=== PATIENT | female | born 1980 | race Caucasian/White ===

== ENCOUNTER 2016-10-04 07:28 | Emergency (ER) | payer MEDICAID ==
[2016-10-04 07:30] VITALS: BP 162/78
--- NOTE | 2016-10-04 08:03 | PHYS DOC ---
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 Pt states she's had intermittent LUQ abdominal cramping starting 0400 today. States she went to bed feeling well, today mildly achy and one loose stool prior to arrival. No n/v as yet, has been around children with gastroenteritis this past week. Appetite preserved, no prearrival tx. Abdominal discomfort described as spasm, moderate-severe no known exacerbating/relieving factors. Supposed to work today, states she has called her employer notifying them she will not be in today. Requests work note. No fever/chills/myalgias no other c/ o. Timing/Duration: 4-6 hours Severity: moderate Modifying Factors: improves with other Associated Symptoms: other Allergies: Coded Allergies: naproxen (Verified Allergy, Unknown, 10/04/16) Past Medical History Medical History: asthma Surgical History: noncontributory Social History Smoker: non-smoker Alcohol: none Drugs: none Review of Systems Constitutional: see HPI Respiratory: denies cough, denies shortness of breath Cardiovascular: denies chest pain, denies palpitations Gastrointestinal: see HPI Genitourinary: denies dysuria, denies frequency, denies hematuria Musculoskeletal: denies back pain, denies joint swelling, denies neck pain Psychiatric/Neurological: denies headache, denies numbness, denies paresthesia Physical Exam General Appearance: no apparent distress, obese Ear, Nose, Throat: hearing grossly normal, normal ENT inspection Neck: non-tender, supple Respiratory: normal breath sounds, no respiratory distress Cardiovascular: normal peripheral pulses, regular rate, rhythm Gastrointestinal: normal bowel sounds, soft (ND, no focal TTP, obese no mass) Rectal: deferred Back: no CVA tenderness, no vertebral tenderness Extremities: non-tender, normal inspection Neurologic/Psychiatric: inspector assembly II-XII nml as tested, no motor/sensory deficits, alert, normal mood/affect, oriented x 3 Skin: normal color, warm/dry Orders, Labs, Meds Pt did develop the discomfort as we were finishing up evaluation, I palpated gas bubbles at the site. Given pt malaise, recent exposure, loose stool, symptoms, and other boyd essentially normal exam it appears pt developing viral GE. Will treat as such, pt to return prn. She expressed agreement/ understanding with treatment plan. Departure Time of Disposition: 07:58 Disposition: 01 HOME, SELF-CARE Diagnosis: Abdominal discomfort NOS Condition: GOOD Patient Instructions: Abdominal Pain Additional Instructions: As discussed, it appears you may be developing gastroenteritis. Off work today/tomorrow. Clear liquids today, advance to bland diet tomorrow. Aggressive hydration with gatorade, water. OTC gas remedy (simethicone, etc) as needed. Rx: dicyclomine, zofran odt, norco 5mg #10 Follow up with your doctor in 3-5 days if not better. Return to ED with new or changing symptoms. MARK GARCIA DO Oct 04, 2016 08:03
[2016-10-04] MEDS ORDERED: ONDANSETRON ODT 4 MG TAB.RAPDIS PO ONE (08:15)
[2016-10-04] MEDS ORDERED: DICYCLOMINE HCL 20 MG TABLET PO ONE (08:15)
[2016-10-04] MEDS ORDERED: HYDROCODONE/APAP 5/325MG TABLET. PO ONE (08:15)
== END 2016-10-04 08:10 | disposition home or self-care (01) ==
LOC: ER 07:28
DX: R10.32 Left lower quadrant pain (principal); J45.909 Unspecified asthma, uncomplicated; Z88.6 Allergy status to analgesic agent
CPT/HCPCS: 99284; Q0162

== ENCOUNTER → 2017-04-16 | Outpatient (CLI) | payer BC, MEDICAID ==
--- NOTE | 2017-04-16 09:06 | RAD ---
Indication: Asthma. Time of exam 0750 hours. No prior studies are available for comparison. The heart appears mildly enlarged. The lungs are clear. The pulmonary vascularity is normal. No infiltrate is detected. No effusion or pneumothorax is seen. Mild right convexity scoliotic curvature is noted. Impression: No acute cardiopulmonary process is detected.
== END | disposition home or self-care (01) ==
LOC: DXRADRC 08:53
PROVIDERS: ATTEND Physician Assistant Medical
DX: J45.909 Unspecified asthma, uncomplicated (principal); I51.7 Cardiomegaly; M41.84 Other forms of scoliosis, thoracic region
CPT/HCPCS: 71020

== ENCOUNTER 2021-03-01 20:49 | Emergency (ER) | payer SELFPAY ==
[~2021-03-01] VITALS: Ht 157.5 cm; Wt 101.4 kg
--- NOTE | 2021-03-01 22:05 | PHYS DOC ---
Past History Past Medical History: Asthma Past Surgical History: Tubal ligation Alcohol Use: None Drug Use: None Adult General Chief Complaint Chief Complaint: NAUSEA/VOMITING/DIARRHEA HPI HPI Patient is a 40-year-old female who presents with a chief complaint of 1 day of heartburn, nausea, vomiting, and diarrhea. Denies any recent traumas, known ill contacts, fevers, actual chest pain, shortness of breath, dyspnea on exertion, orthopnea, PND or edema. States she is otherwise healthy outside of asthma. Patient states she does not think it is an asthma exacerbation and has not been wheezing or needed her medications. Review of Systems Review of Systems Review of systems otherwise unremarkable except noted in HPI Allergies Allergies Allergies Coded Allergies Type Severity Reaction Last Updated Verified naproxen Allergy Unknown 10/04/16 Yes Physical Exam Physical Exam Constitutional: Well developed, well nourished, no acute distress, non-toxic appearance. [] HENT: Normocephalic, atraumatic, Eyes: conjunctiva normal, no discharge. [] Neck: Normal range of motion, no tenderness, supple, no stridor. [] Cardiovascular:Heart rate regular rhythm, no murmur [] Lungs & Thorax: Bilateral breath sounds clear to auscultation [] Abdomen: soft, no tenderness, no masses, no pulsatile masses. [] Skin: Warm, dry, no erythema, no rash. [] Back: No tenderness, no CVA tenderness. [] Extremities: No tenderness, no cyanosis, no clubbing, ROM intact, no edema. [] Neurologic: Alert and oriented X 3, no focal deficits noted. [] Psychologic: Affect normal, judgement normal, mood normal. [] Current Patient Data Vital Signs Vital Signs Date Time Temp Pulse Resp B/P (MAP) Pulse Ox O2 Delivery O2 Flow Rate FiO2 03/01/21 21:56 98.5 70 18 148/80 (102) 99 Room Air EKG EKG [] Radiology/Procedures Radiology/Procedures [] Heart Score C/O Chest Pain: No Risk Factors: Risk Factors: DM, Current or recent (<one month) smoker, HTN, HLP, family history of CAD, obesity. Risk Scores: Risk Factors: DM, Current or recent (<one month) smoker, HTN, HLP, family history of CAD, obesity. Course & Med Decision Making Course & Med Decision Making Patient is a 40-year-old female who presents with a day of heartburn, nausea, vomiting, diarrhea Vital signs not concerning. Physical exam noted above. EKG noted above and normal. Troponin normal. Given GI cocktail and Zofran. Chest x-ray not concerning. On reassessment patient stated she was feeling much better and think the GI cocktail the trick. States symptoms have resolved. States she was supposed to be taking omeprazole but has been taking it regularly and did not change her diet yet. Discussed the need to follow-up with her primary care physician and set up an outpatient EGD. Advised on symptom management at home with diet and medications. Gave return precautions to the ED. Patient grateful, verbalized understanding and agreed with plan of discharge. [] Dragon Disclaimer Dragon Disclaimer This electronic medical record was generated, in whole or in part, using a voice recognition dictation system. Departure Departure: Impression: Primary Impression: Heartburn Additional Impression: Nausea Disposition: HOME / SELF CARE / HOMELESS Condition: GOOD Referrals: MED PORTILLO (PCP) Patient Instructions: Diet for Gastroesophageal Reflux Disease, Adult, Gastroesophageal Reflux Disease, Adult Additional Instructions: Thank you for coming into the emergency department tonight and allowing us to take care of you. Please read the attached information carefully to go back over things we discussed. Please adjust your diet accordingly as we discussed. Please use your omeprazole, and Tums as we discussed. Please call your primary care physician on Wednesday to set up a follow-up and discuss the outpatient scope of your esophagus and abdomen. Please come back to the ED with new or concerning symptoms as discussed. Problem Qualifiers MARYSE LAM MD Mar 01, 2021 22:05
[2021-03-01] MEDS ORDERED: ONDANSETRON ODT 4 MG TAB.RAPDIS PO ONE (22:15)
[2021-03-01] MEDS ORDERED: LIDO:MAALOX 1:1 20 ML SINGLE DOSE. PO ONE (22:15)
--- NOTE | 2021-03-01 22:52 | RAD ---
Study: XR CHEST 1V Indication: Chest pain. Comparison: 04/16/2017 Findings: Unremarkable/unchanged cardiomediastinal silhouette and paulina. Possible faint atelectasis the left maria ines g base. No confluent infiltrate, pleural effusion or pneumothorax. Grossly intact osseous structures. Impression: No acute radiographic abnormality of the chest. Electronically signed by: AUGUSTA DEMPSEY MD (03/01/2021 10:49 PM) [facility]
[2021-03-01] MEDS ORDERED: ONDANSETRON 4MG ODT 4TABLET STARTPACK. PO ONE (23:15)
[2021-03-01 23:20] VITALS: BP 114/65
--- NOTE | 2021-03-02 06:37 | EKG ---
[address] [address] Test Date: 2021-03-01 Test Time: 22:25:21 Pat Name: TERA MCADAMS Department: Room: Gender: F Terrazzo Roller: : 1980 Requested By: MARYSE LAM Order Number: [id number] Reading MD: Measurements Intervals [place] Rate: 70 P: 49 SC: 176 QRS: 21 QRSD: 90 T: -4 QT: 468 QTc: 509 Interpretive Statements SINUS RHYTHM PROLONGED QT NO SPECIFIC ECG ABNORMALITIES RI6.02 No previous ECG available for comparison
--- NOTE | 2021-03-03 08:39 | NUR ---
IP: Informed pt of negative covid test. Pt verbalized understanding.
== END 2021-03-01 23:23 | disposition home or self-care (01) ==
LOC: ER 20:49
DX: R12 Heartburn (principal); R11.2 Nausea with vomiting, unspecified; J45.909 Unspecified asthma, uncomplicated; Z98.51 Tubal ligation status; Z88.6 Allergy status to analgesic agent; Z20.822 Contact with and (suspected) exposure to COVID-19
CPT/HCPCS: 71045; 84484; 93005; 99285; C9803; Q0162; U0003

== ENCOUNTER → 2021-05-20 | Outpatient (CLI) | payer MEDICAID ==
--- NOTE | 2021-05-20 10:45 | RAD ---
BILATERAL DIGITAL SCREENING 2-D MAMMOGRAM INDICATION: Routine screening. COMPARISON: None. This is a baseline exam. Interpretation was made using CAD. FINDINGS: Breast Density: There are scattered areas of fibroglandular density. RIGHT BREAST: No suspicious masses, calcifications or areas of architectural distortion are seen. LEFT BREAST: No suspicious masses, calcifications or areas of architectural distortion are seen. IMPRESSION: 1. No imaging evidence of malignancy. ASSESSMENT: BI-RADS 1. Negative. RECOMMENDATION: Routine annual screening mammogram. The facility will notify the patient of the results via mail. Patient information will be entered int o the mammography reminder system with a target recall date for the next mammogram. A reminder letter will be generated by the facility. Electronically signed by: Ronda Pro MD (05/20/2021 10:43 AM) [id number]
== END ==
LOC: MAMMO 08:17
PROVIDERS: ATTEND Physician Assistant Medical
DX: Z12.31 Encounter for screening mammogram for malignant neoplasm of breast (principal)
CPT/HCPCS: 77067

== ENCOUNTER → 2021-07-22 | Outpatient (CLI) | payer MEDICAID ==
[~2021-07-22] MED LIST: IOHEXOL 240 MG/ML 50ML VIAL. ONE; IOHEXOL 300 MG/ML 75 ML VIAL. IV ONE
--- NOTE | 2021-07-22 10:13 | RAD ---
CT abdomen pelvis with contrast dated 07/22/2021. COMPARISON: None. INDICATION: Diffuse abdominal pain and diarrhea. TECHNIQUE: Contiguous axial imaging the abdomen pelvis performed after the administration of 75 cc Isovue-370. One or more of the following individualized dose reduction techniques were utilized for this examinat ion: 1. Automated exposure control 2. Adjustment of the mA and/or kV according to patient size 3. Use of iterative reconstruction technique. FINDINGS: Limited images of lung bases are clear. Heart size mildly enlarged. No pleural or pericardial effusio n. Liver, spleen, pancreas, adrenal glands, gallbladder and kidneys are unremarkable. No hydronephrosis. Partially opacified GI tract normal in caliber and contour. No bowel wall thickening. No inflammatory stranding in the mesentery. No ascites or lymphadenopathy. Abdominal aorta normal in caliber. Append ix normal in caliber. Small umbilical hernia containing only fat. Images of pelvis show nondistended urinary bladder. Uterus is retroflexed. No adnexal mass or free fl uid. No lymphadenopathy. Bone window show no acute finding. Multilevel spondylosis. IMPRESSION: 1. No acute abnormality of abdomen or pelvis. Normal appendix. 2. Small umbilical hernia containing only fat. Electronically signed by: Hemal Fisher MD (07/22/2021 10:11 AM) [facility]
== END ==
LOC: CT 08:26
PROVIDERS: ATTEND Internal Medicine Gastroenterology
DX: K42.9 Umbilical hernia without obstruction or gangrene (principal); I51.7 Cardiomegaly; N85.4 Malposition of uterus; K59.00 Constipation, unspecified; M47.819 Spondylosis without myelopathy or radiculopathy, site unspecified
CPT/HCPCS: 74177; Q9967